=== PATIENT | female | born 1980 | race Caucasian/White ===

== ENCOUNTER 2019-08-20 00:40 | Emergency (ER) | payer MEDICAID ==
[~2019-08-20] VITALS: Ht 175.3 cm; Wt 56.7 kg
[2019-08-20 00:55] VITALS: BP 112/68
[2019-08-20] MEDS ORDERED: DIFLUCAN100 MG ORAL (01:15)
[2019-08-20] MEDS ORDERED: Fluconazole 100mg tab ORAL ONE (01:15)
[2019-08-20 01:28] LABS: APPEARANCE,URINE CLEAR; BILIRUBIN, URINE NEGATIVE (NEGATIVE); COLOR,URINE PALE YELLOW; GLUCOSE, URINE (UA) NEGATIVE (NEGATIVE); KETONES,URINE NEGATIVE (NEGATIVE); LEUKOCYTE ESTERASE ,URINE 1+ (NEGATIVE); NITRITE,URINE NEGATIVE (NEGATIVE); PH,URINE 6 (4.5-8.0); PROTEIN,URINE NEGATIVE (NEGATIVE); UROBILINOGEN,URINE NORMAL MG/DL (0.0-1.0)
--- NOTE | 2019-08-20 01:55 | Emergency Room Report ---
History of Present Illness General Chief Complaint: Female Urogenital Problems Source: Patient Present Illness HPI Patient is a 39-year-old female presents after possible foreign body. Patient states that she had noticed increased vaginal irritation and had possibly lost a Kegel ball area. She had not been having any fever. She reports having some increased discomfort to the lower abdomen. Denies any vomiting. Denies any foul-smelling discharge. Had noticed some increased whitecolored Discharge. Allergies: Coded Allergies: PENICILLINS (Verified Allergy, Unknown, 08/20/19) Patient History Past Medical History: see triage record Last Menstrual Period: 07/31/2019 Now: No Reviewed Nursing Documentation: PMH: Agreed; PSxH: Agreed Nursing Documentation-PMH Past Medical History: No Stated History Review of Systems All Other Systems: negative except mentioned in HPI Physical Exam Vital Signs Date Time Temp Pulse Resp B/P (MAP) Pulse Ox O2 Delivery O2 Flow Rate FiO2 08/20/19 00:48 98.2 91 20 109/64 (79) 100 Room Air General Appearance: well appearing, no apparent distress, alert, GCS 15 Head: normocephalic, atraumatic ENT: hearing grossly normal, normal voice Neck: full range of motion, supple Respiratory: no respiratory distress, speaking full sentences Cardiovascular #1: normal inspection Gastrointestinal: normal inspection Genitourinary: normal inspection, adnexa normal, uterus normal, other - No foreign body identified., Slight thick white discharge. Musculoskeletal: no calf tenderness Neurologic: normal gait Psychiatric: mood/affect normal Skin: no rash Medical Decision Making Diagnostic Impression: Primary Impression: Yeast infection ER Course Patient presented for foster possible vaginal foreign body. Differential diagnosis include was not limited to foreign body, yeast infection, urinary tract infection among others. Patient has a benign exam and does not appear to require any imaging or laboratory testing at this time. Patient's exam is consistent with some yeast infection. Pelvic exam did not show any evidence of foreign body despite patient's prior history of possibly leaving something in her vagina. There is no noted cervical motion tenderness or adnexal tenderness. Patient will be discharged home. She was advised to be rechecked by her [employer]. Patient was given Diflucan in the emergency department. Advised to return if worse. This medical record is generated with [employer] folded cloth taper software. There may be some folded cloth taper discrepancies related to use of this software Labs Test 08/20/19 01:20 Urine Color Pale yellow Urine Appearance Clear Urine pH 6 (4.5-8.0) Urine Specific [place] 1.020 (1.005-1.035) Urine Protein Negative (NEGATIVE) Urine Glucose (UA) Negative (NEGATIVE) Urine Ketones Negative (NEGATIVE) Urine Blood Negative (NEGATIVE) Urine Nitrite Negative (NEGATIVE) Urine Bilirubin Negative (NEGATIVE) Urine Urobilinogen Normal MG/DL (0.0-1.0) Urine Leukocyte Esterase 1+ (NEGATIVE) Urine RBC 0-2 /HPF (0 - 2) Urine WBC 2-4 /HPF (0 - 2) Urine Squamous Epithelial Cells Few /LPF (NONE/OCC) Urine Bacteria None /HPF (NONE) Last Vital Signs Date Time Temp Pulse Resp B/P (MAP) Pulse Ox O2 Delivery O2 Flow Rate FiO2 08/20/19 00:55 98.2 87 18 112/68 99 Room Air Status: improved Disposition: HOME, SELF-CARE Condition: Stable Scripts Fluconazole* (DIFLUCAN*) 100 Mg Tablet 100 MG ORAL DAILY, #1 TAB Prov: Larry Payne MD 08/20/19 Patient Instructions: Vaginal Yeast Infection, Adult Larry Payne MD Aug 20, 2019 01:55
[2019-08-20 02:22] VITALS: BP 110/70
== END 2019-08-20 02:22 | disposition home or self-care (01) ==
LOC: EMR 01:00
DX: B37.9 Candidiasis, unspecified (principal); Z88.0 Allergy status to penicillin
CPT/HCPCS: 81003; 81025; Z7502; 99283